=== PATIENT | female | born 1995 | race Caucasian/White ===

== ENCOUNTER 2017-04-22 10:14 | Outpatient (CLI) | payer BC ==
--- NOTE | 2017-04-22 17:06 | DIAGNOSTIC IMAGING REPORT ---
PROCEDURE: US ECHOCARDIOGRAM INDICATION: Murmur TECHNIQUE: This is a comprehensive adult transthoracic echocardiogram of adequate quality. The patient is in sinus rhythm during the study. COMPARISON: None FINDINGS: Left ventricle: Normal size with end diastolic dimension of 4.2 cm. Normal wall thickness. Normal wall motion. Normal ejection fraction estimated at 65- 70%. Normal diastolic function. Right ventricle: Normal size and function. Left atrium: Normal size. Right atrium: Normal size. Aortic valve: Trileaflet. No stenosis. There is trace insufficiency only seen in the parasternal short axis. Mitral valve: Normal in structure and function. Tricuspid valve: Normal in structure and function. Pulmonic valve: Normal in structure and function. Pericardium: No effusion Aorta: Ascending aorta is normal in size. Hemodynamics normal left atrial pressure. Unable to estimate pulmonary artery pressure due to inadequate tricuspid regurgitation although no other signs of elevated pulmonary artery pressures. IMPRESSION: Normal biventricular function. Trace aortic valve insufficiency. Otherwise all valves normal in structure and function.
== END 2017-04-22 23:00 ==
LOC: US SRH 10:14
DX: R01.1 Cardiac murmur, unspecified (principal)